=== PATIENT | female | born 1970 | race Caucasian/White ===

== ENCOUNTER 2017-09-07 13:22 | Emergency (ER) | payer OTHER ==
[2015-09-16 08:28] VITALS: BMI 36.3
[~2017-09-07 13:22] MED LIST: AMBIEN10 MG PO; CELEXA20 MG PO; HYDROCODONE-APA1 TAB PO; IBUPROFEN600 MG PO; KLONOPIN0.5 MG PO; PERCOCET 5-3251 TAB PO; PRAVACHOL20 MG PO; ZANTAC150 MG PO
== END 2017-09-07 14:20 | disposition home or self-care (01) ==
LOC: D.ER 13:22
DX: S16.1XXA Strain of muscle, fascia and tendon at neck level, initial encounter (principal); X58.XXXA Exposure to other specified factors, initial encounter; Y93.89 Activity, other specified; Y92.89 Other specified places as the place of occurrence of the external cause; S39.012A Strain of muscle, fascia and tendon of lower back, initial encounter

== ENCOUNTER 2018-07-29 21:30 | Emergency (ER) | payer MEDICAID ==
[~2018-07-29] VITALS: Ht 154.9 cm; Wt 86.4 kg
[2018-07-29 21:48] VITALS: Ht 154.9 cm; Wt 86.4 kg
[2018-07-29] MEDS ORDERED: PROTONIX40 MG (21:49)
[2018-07-30] MEDS ORDERED: TORADOL10 MG PO (00:41)
[2018-07-30 00:58] VITALS: BP 113/73
== END 2018-07-30 01:00 | disposition home or self-care (01) ==
LOC: D.ER 21:30
DX: R51 Headache (principal); M54.2 Cervicalgia; W17.89XA Other fall from one level to another, initial encounter; Y93.89 Activity, other specified; Y92.019 Unspecified place in single-family (private) house as the place of occurrence of the external cause

== ENCOUNTER 2018-12-23 12:11 | Emergency (ER) | payer MEDICAID ==
[~2018-12-23] VITALS: Ht 154.9 cm; Wt 86.4 kg
[~2018-12-23 12:11] MED LIST changes: +PROTONIX40 MG; +TORADOL10 MG PO
[2018-12-23 12:31] VITALS: Ht 154.9 cm; Wt 86.4 kg
[2018-12-23 13:41] LABS: BASOPHILS 0.4 % (0-2); EOSINOPHILS 4.9 % (0-7); HEMATOCRIT 40.4 % (36.0-48.0); HEMOGLOBIN 13.8 g/dL (12-16); IMMATURE GRANULOCYTES 0.1 % (0-5); LYMPHOCYTES 32.2 % (15-50); MCH 28.9 pg (26.0-34.0); MCHC 34.2 g/dL (31.0-37.0); MCV 84.7 fL (80.0-100.0); MEAN PLATELET VOLUME 9.4 fL (7.4-10.4); MONOCYTES 5.3 % (2-11); NEUTROPHILS 57.1 % (40-80); RBC 4.77 10x6/uL (4.00-5.40); RDW 12.6 % (11.5-14.5); WBC 8.4 10x3/uL (4.8-10.8)
[2018-12-23 13:43] LABS: PLATELET COUNT 344 10x3/uL (130-400)
[2018-12-23 13:46] LABS: APPEARANCE HAZY (CLEAR); BILIRUBIN NEGATIVE (NEGATIVE); COLOR STRAW (YELLOW); GLUCOSE NEGATIVE (NEGATIVE); KETONE NEGATIVE (NEGATIVE); NITRITE NEGATIVE (NEGATIVE); PROTEIN NEGATIVE (NEGATIVE); SPECIFIC GRAVITY 1.015 (1.005-1.020); UROBILINOGEN NORMAL (NORMAL)
[2018-12-23 13:55] LABS: ALBUMIN 3.9 g/dL (3.4-5.0); ANION GAP 14.1 mmol/L (8-16); BILIRUBIN - TOTAL 0.6 mg/dL (0.2-1.3); CALCIUM 8.7 mg/dL (8.5-10.1); CARBON DIOXIDE 25.8 mmol/L (21.0-32.0); CREATININE - SERUM 1.1 mg/dL (0.6-1.3); POTASSIUM - SERUM 3.9 mmol/L (3.5-5.1)
[2018-12-23] MEDS ORDERED: TORADOL10 MG PO (18:00)
[2018-12-23 18:10] VITALS: BP 128/78
== END 2018-12-23 18:11 | disposition home or self-care (01) ==
LOC: D.ER 12:11
PROVIDERS: Family Medicine
DX: R10.2 Pelvic and perineal pain (principal)

== ENCOUNTER → 2019-01-11 12:54 | Outpatient (CLI) | payer MEDICAID ==
[2018-12-23 12:31] VITALS: BMI 35.9
== END | disposition home or self-care (01) ==
LOC: D.CT 01-10 16:00
PROVIDERS: ATTEND Obstetrics & Gynecology
DX: R10.9 Unspecified abdominal pain (principal)

== ENCOUNTER → 2019-08-30 14:39 | Outpatient (CLI) | payer MEDICAID ==
[2018-12-23 12:31] VITALS: BMI 35.9
== END | disposition home or self-care (01) ==
LOC: D.CT 14:39
PROVIDERS: ATTEND Obstetrics & Gynecology
DX: R10.9 Unspecified abdominal pain (principal)

== ENCOUNTER 2020-03-04 09:27 | Day surgery (SDC) | payer MEDICAID ==
[2020-02-29 14:36] LABS: BASOPHILS 0.4 % (0-2); HEMATOCRIT 40.4 % (36.0-48.0); HEMOGLOBIN 13.1 g/dL (12-16); IMMATURE GRANULOCYTES 0.1 % (0-5); LYMPHOCYTES 33.5 % (15-50); MCH 28.1 pg (26.0-34.0); MCHC 32.4 g/dL (31.0-37.0); MCV 86.7 fL (80.0-100.0); MONOCYTES 5.5 % (2-11); NEUTROPHILS 55.5 % (40-80); PLATELET COUNT 398 10x3/uL (130-400); RBC 4.66 10x6/uL (4.00-5.40); RDW 12.6 % (11.5-14.5); WBC 7.9 10x3/uL (4.8-10.8)
[2020-02-29 14:49] LABS: UDS - AMPHET NEGATIVE QUAL (NEGATIVE); UDS - BARB NEGATIVE QUAL (NEGATIVE); UDS - BENZO NEGATIVE QUAL (NEGATIVE); UDS - COCAINE NEGATIVE QUAL (NEGATIVE); UDS - OPIATE POSITIVE QUAL (NEGATIVE); UDS - PCP NEGATIVE QUAL (NEGATIVE); UDS - THC NEGATIVE QUAL (NEGATIVE)
[2020-03-04] VITALS (9 sets, daily range): BP systolic 96–130; BP diastolic 56–80; Ht 152.4 cm; Wt 87.3 kg
[~2020-03-04] VITALS: Ht 152.4 cm; Wt 87.3 kg
--- NOTE | ~2020-03-04 | OP ---
PATIENT NAME: NEAL COHEN MEDICAL RECORD: [id number] :70 LOCATION:[facility] ADMISSION DATE: SURGEON: FERMÍN GRANADOS MD DATE OF OPERATION: 03/04/2020 DATE OF SERVICE: 03/04/2020 PREOPERATIVE DIAGNOSIS: Chronic left-sided pelvic pain. POSTOPERATIVE DIAGNOSES: 1. Chronic left-sided pelvic pain. 2. Pelvic adhesions. PROCEDURE PERFORMED: 1. Diagnostic laparoscopy. 2. Lysis of adhesions. 3. Left salpingo-oophorectomy. SURGEON: Fermín Granados MD SHEET MUSIC SALESPERSON: Aayush Wolf MD ANESTHESIOLOGIST: Dr. Hare. ANESTHESIA: General. FINDINGS: Left ovary is adhesed to the left anterior abdominal wall. It is otherwise unremarkable. The patient's right ovary and uterus is surgically absent. SPECIMENS REMOVED: Left ovary with tube. SPECIMEN DISPOSITION: Pathology. ESTIMATED BLOOD LOSS: Minimal. FLUIDS: 1200 cc lactated Ringer's. URINE OUTPUT: Quantity sufficient cath prior to this procedure. COMPLICATIONS: None. DRAINS: None. INDICATIONS: The patient is a 49-year-old female with chronic left-sided pelvic pain. The patient has tenderness in the adnexa on examination. She has tried conservative measures without relief of her symptoms and desires definitive treatment. DESCRIPTION OF PROCEDURE: After informed consent was assured, the patient was taken to the operating room where anesthetic was obtained without difficulty. The patient was prepped and draped. An incision was made at the umbilicus to accommodate a 5-mm trocar. Pneumoperitoneum has developed. Accessory trocars were now placed in the right lower quadrant and in the midline. Midline port was a 11-mm port and right lower quadrant port was a 5-mm port. The grasper was OPERATIVE REPORT [id number] NEAL COHEN inserted and the tube and ovarian complex adhesed to the left anterior abdominal wall, it was grasped and placed on gentle traction. Using a Thunderbeat coagulation cutter from the central port, the adhesions were compressed, coagulated, and . This dissection was completed with both Thunderbeat and with EndoShears. Once the tube and ovary has been mobilized from the anterior wall on the left side, the dissection begins underneath the ovary inferiorly and was carried up across the infundibulopelvic ligament. The Thunderbeat coagulation cutter was utilized to remove the ovary from its attachments. The ovary was not placed in an Endobag and removed through the central port. The operative sites inspected. Hemostasis has been achieved. The pelvis was irrigated, irrigant removed. Sponge, lap, needle counts were correct times 2. The pneumoperitoneum was released as the accessory trocars were removed. Primary trocars were removed after release of the pneumoperitoneum and all sites were closed with a subcuticular stitch and covered with Dermabond. Sponge, lap, needle counts were correct times 2. The patient was awakened and went to the recovery room in stable condition. TRANSINT:[id number] Voice Confirmation ID: [id number] DOCUMENT ID: [id number] FERMÍN GRANADOS MD CC: [id number] DICTATION DATE: 03/14/20 1055 [facility]: 03/14/20 1148 [facility] 03/05/20 [facility] [address] [place] [address]
[2020-03-04 08:09] LABS: HCG URINE NEGATIVE (NEGATIVE)
[~2020-03-04 09:27] MED LIST changes: +CALTRATE+D3 PL1 EACH PO; +CYMBALTA20 MG PO; +FUROSEMIDE20 MG PO; +LEXAPRO20 MG PO
--- NOTE | 2020-03-04 15:00 | NUR ---
TO ROOM 1278 VIA GURNEY FROM OR. PT DROWSY BUT RESPONSIVE TO QUESTIONS. ROMERO AT WILL. ABD LAP INCISIONS X3. NO BOSS CATH IN. IV OF LR HUNG AND INFUSING VIA PUMP AT 125CC/HR. SCD'S CONNECTED TO PUMP. ICE CAP TO ABD
--- NOTE | 2020-03-04 15:30 | NUR ---
PT TALKING WITH FAMILY ON PHONE. ICE WATER GIVEN.
--- NOTE | 2020-03-04 16:04 | NUR ---
TOLERATING LIQUIDS. DENIES NEEDS.
--- NOTE | 2020-03-04 17:00 | NUR ---
PT SITTING UP IN THE BED, DENIES N/V, SOB OR DIFFICULTY BREATHING. PT ASKING TO HAVE BP CUFF TAKEN OFF, ALONG WITH O2 SAT MONITOR OFF. MONITORS REMOVED. SRUP X2, CALL LIGHT AND PHONE WITHIN REACH.
--- NOTE | 2020-03-04 18:05 | NUR ---
PT REQUESTS TO GET UP TO THE BATHROOM, GAIT SLOW BUT STEADY, VOIDS 200 MLS YELLOW URINE, PERICARE DONE PER SELF, PERIPANTIES AND PAD ON PER PT'S REQUEST. PT THEN BACK TO BED, SRUP X2, CALL LIGHT AND PHONE WITHIN REACH. PT DENIES ALL OTHER NEEDS. DENIES SOB, DIFFICULTY BREATHING, OR N/V.
--- NOTE | 2020-03-04 19:30 | NUR ---
PT REC'D IN BED AT THIS TIME. STATES THAT PAIN IS A 7/10 AT THIS TIME. LUNGS CLEAR. +BS AT THIS TIME. VOIDING AND TOLERATING REGULAR DIET AT THIS TIME. SCDS IN PLACE. NO DISTRESS NOTED. SEE FLOWSHEET FOR OTHER DOCUMENTATION. Ledy FORRESTER RN
--- NOTE | 2020-03-04 19:56 | NUR ---
PT MEDICATED WITH NEURONTIN AND TORADOL 30 NG. WILL CONTINUE TO MONITOR. Ledy FORRESTER RN
--- NOTE | 2020-03-04 20:45 | NUR ---
PT RESTING AT THIS TIME. EYES CLOSED. NO DISTRESS NOTED AT THIS TIME. Ledy CUETO RN
--- NOTE | 2020-03-04 21:39 | NUR ---
REPORT CALLED TO DEEDEE LAGUERRE RN. Ledy FORRESTER RN
--- NOTE | 2020-03-04 22:14 | NUR ---
PT MEDICATED FOR PAIN WITH PERCOCET AND AMBIEN FOR SLEEP. PT MOVED TO ROOM 1223 AMBULATORY FOR DURTION OF HOSPITAL STAY. Ledy FORRESTER RN
--- NOTE | 2020-03-04 22:30 | NUR ---
PT ORIENTED TO ROOM, PT REQUESTED AND SERVED STRAWBERRY POPSICLE AND FRESH H20, DENIES FURTHER NEEDS, BED IN LOW POSITION, SIDE RAILS X 2, CALL LIGHT IN REACH
[2020-03-05 00:10] VITALS: BP 109/71
--- NOTE | 2020-03-05 00:10 | NUR ---
PT AWAKE, JUST COMING OUT OF BR, REPORTS VOIDING WITH NO DIFFICULTY, PT TO BED, VS OBTAINED, RATES INC PAIN 05/10, INFORMED PT THAT I WILL ADM PAIN MED WHEN DUE, PT VERBALIZES UNDERSTANDING, SCD'S PLACED BACK ON AND WORKING PROPERLY, DENIES FURTHER NEEDS
--- NOTE | 2020-03-05 02:37 | NUR ---
PT RESTING WITH EYES CLOSED, RESP QUIET, NO DISTRESS NOTED, LEFT UNDISTURBED AT THIS TIME, SCD'S CONTINUE ON AND WORKING PROPERLY
--- NOTE | 2020-03-05 03:45 | NUR ---
PT RESTING WITH EYES CLOSED, RESP QUIET, NO DISTRESS NOTED, LEFT UNDISTURBED AT THIS TIME
[2020-03-05 05:21] VITALS: BP 110/73
--- NOTE | 2020-03-05 05:21 | NUR ---
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
--- NOTE | 2020-03-05 06:08 | NUR ---
PT RESTING WITH EYES CLOSED, AROUSES TO SOFT VERBAL STIMULATION, ADM NEURONTIN PO PER MD ORDERS, SEE EMAR, PT RATES PAIN 5/10, DENIES FURTHER NEEDS
[2020-03-05 07:30] VITALS: BP 116/75
--- NOTE | 2020-03-05 07:30 | NUR ---
AM ASSESSMENT COMPLETED. SEE FLOWSHEET. SEE EMAR FOR ALL MEDS ADM BY THIS RN. SRUP X2, CALL LIGHT AND PHONE WITHIN REACH. PT DENIES ALL OTHER NEEDS AT THIS TIME.
--- NOTE | 2020-03-05 08:44 | NUR ---
DR. GRANADOS IN ROOM SPEAKING WITH PT.
--- NOTE | 2020-03-05 09:00 | NUR ---
PT AMBULATORY IN ROOM, DENIES SOB, DIFFICULTY BREATHING, OR N/V. PT DENIES ALL OTHER NEEDS AT THIS TIME. PT HAS VOIDED PER SELF WITHOUT DIFFICULTY. TOOTHBRUSH/PASTE, AND SOAP AND LINENS PROVIDED FOR AM CARE. PT DENIES ALL OTHER NEEDS AT THIS TIME.
--- NOTE | 2020-03-05 10:50 | NUR ---
SL TO RIGHT FOREARM DC'D WITH CATH INTACT. PT VALERY WELL. PT IS DRESSING FOR DISCHARGE.
[2020-03-05] MEDS ORDERED: NEURONTIN 300300 MG PO (11:00)
[2020-03-05] MEDS ORDERED: MOBIC7.5 MG PO (11:00)
--- NOTE | 2020-03-05 11:00 | NUR ---
DISCHARGE INSTRUCTIONS EXPLAINED TO PT, PT DENIES ALL QUESTIONS. COPIES PROVIDED. PRESCRIPTIONS ALSO GIVEN TO PT, ALONG WITH POST OP INSTRUCTION SHEETS. PT OFF UNIT IN STABLE CONDITION BY WHEELCHAIR, WITH HER DAUGHTER DRIVING.
[2020-03-05] MEDS ORDERED: PERCOCET 7.5/321 TAB PO (11:01)
[2020-03-05] MEDS ORDERED: ESTRACE1 MG PO (11:02)
== END 2020-03-05 11:15 | disposition home or self-care (01) ==
LOC: D.PAN 09:27 → D.WS 09:27 → D.PAN 09:30 → D.LD 14:06 → D.WS 22:11 → D.PAN 03-05 11:15
PROVIDERS: ATTEND Obstetrics & Gynecology
DX: R10.2 Pelvic and perineal pain (principal); G89.29 Other chronic pain; N81.6 Rectocele

== ENCOUNTER 2021-01-19 13:51 | Emergency (ER) | payer BC ==
[~2021-01-19] VITALS: Ht 152.4 cm; Wt 84.1 kg
[~2021-01-19 13:51] MED LIST changes: +ESTRACE1 MG PO; +MOBIC7.5 MG PO; +NEURONTIN 300300 MG PO; +PERCOCET 7.5/321 TAB PO
[2021-01-19 13:56] VITALS: BP 123/89; Ht 152.4 cm; Wt 84.1 kg
[2021-01-19 14:37] LABS: SARS-CoV-2 ANTIGEN NEGATIVE- SARS-COV-2 (NEGATIVE)
[2021-01-19 14:38] LABS: BASOPHILS 0.2 % (0-2); EOSINOPHILS 3.2 % (0-7); HEMOGLOBIN 12.8 g/dL (12-16); IMMATURE GRANULOCYTES 0.2 % (0-5); LYMPHOCYTE ABS# 1.88 10x3/uL (1.18-3.74); LYMPHOCYTES 20.7 % (15-50); MCH 28.4 pg (26.0-34.0); MCHC 32.8 g/dL (31.0-37.0); MCV 86.5 fL (80.0-100.0); MEAN PLATELET VOLUME 8.9 fL (7.4-10.4); MONOCYTES 6.6 % (2-11); NEUTROPHIL ABS# 6.27 10x3/uL (1.56-6.13); NEUTROPHILS 69.1 % (40-80); RBC 4.51 10x6/uL (4.00-5.40); RDW 13.2 % (11.5-14.5); WBC 9.1 10x3/uL (4.8-10.8)
[2021-01-19 14:46] LABS: PLATELET COUNT 287 10x3/uL (130-400)
[2021-01-19 14:50] LABS: INFLUENZA TYPE A NEGATIVE (NEGATIVE); INFLUENZA TYPE B NEGATIVE (NEGATIVE)
[2021-01-19 14:52] LABS: INR 1.05 (0.85-1.17); PROTIME 12.7 SECONDS (11.6-15.0)
[2021-01-19 14:53] LABS: APTT 34.8 SECONDS (22.8-39.4)
[2021-01-19 14:55] LABS: CALC OSMOLALITY 269 mosm/kg (275-300); CALCIUM 8.9 mg/dL (8.5-10.1); CARBON DIOXIDE 29.9 mmol/L (21.0-32.0); CHLORIDE - SERUM 102 mmol/L (98-107); GLUCOSE 101 mg/dL (74-106); POTASSIUM - SERUM 3.9 mmol/L (3.5-5.1); SODIUM 135 mmol/L (136-145); UREA NITROGEN 12 mg/dL (7-18); eGFR NON AFRICAN AMERICAN 62 mL/min (90-120)
[2021-01-19 15:12] LABS: ALBUMIN 3.5 g/dL (3.4-5.0); ALKALINE PHOSPHATASE 77 U/L (30-120); ALT (SGPT) 26 U/L (10-68); BILIRUBIN - TOTAL 0.33 mg/dL (0.2-1.3); CREATINE KINASE 46 UL (21-215); PRO BNP 112 pg/mL (0-125); PROTEIN - SERUM 7.6 g/dL (6.4-8.2)
[2021-01-19 15:14] LABS: TROPONIN-I < 0.017 ng/mL (0.000-0.060)
[2021-01-19 15:51] LABS: BILIRUBIN NEGATIVE (NEGATIVE); KETONE NEGATIVE (NEGATIVE); NITRITE NEGATIVE (NEGATIVE); UROBILINOGEN NORMAL mg/dL (< 2)
[2021-01-19] MEDS ORDERED: AUGMENTIN 875-11 TAB PO (16:15)
== END 2021-01-19 16:32 | disposition home or self-care (01) ==
LOC: D.ER 13:51
PROVIDERS: Family Medicine
DX: J32.9 Chronic sinusitis, unspecified (principal); H66.90 Otitis media, unspecified, unspecified ear; K76.0 Fatty (change of) liver, not elsewhere classified; K21.9 Gastro-esophageal reflux disease without esophagitis; R07.9 Chest pain, unspecified